=== PATIENT | female | born 1945 | race Two or more races ===

== ENCOUNTER 2022-06-17 12:52 | Emergency (ER) | payer MEDICARE, SELFPAY ==
--- NOTE | ~2022-06-17 | CT_ITS ---
EXAMINATION: CT ABDOMEN AND PELVIS WITH CONTRAST CLINICAL INFORMATION: Rule out pelvic fistula COMPARISON: None TECHNIQUE: Multidetector volumetric images were obtained from the superior aspect of the liver through the pubic symphysis following administration 85 mL of Omnipaque 350 intravenous contrast. Sagittal and coronal reformatted images were obtained on the technologist's workstation. Oral contrast: Yes This CT examination was performed using dose optimization techniques as appropriate, variously including the following: *Automated exposure control *Adjustment of mA and/or kV according to patient size (this includes techniques or standardized protocols for targeted exams where dose is matched to indication/reason for exam; i.e. extremities or head) *Use of iterative reconstruction technique DLP: 623 mGy-cm FINDINGS: LUNG BASES: The visualized lung bases are unremarkable. LIVER, GALLBLADDER, AND BILIARY TREE: The liver is normal in size, shape, and attenuation. No focal hepatic lesion or biliary ductal dilatation is present. The gallbladder is unremarkable with no evidence of radiopaque gallstones, gallbladder wall thickening, or obvious pericholecystic inflammatory changes. PANCREAS: Unremarkable. SPLEEN: Unremarkable. ADRENAL GLANDS: Unremarkable. KIDNEYS AND URETERS: There may be mild left hydronephrosis and ureteral dilatation from the enlarged uterus. There is a small cyst in the lower pole of the right kidney. Kidneys are otherwise normal. BLADDER: The bladder is displaced anteriorly by the enlarged uterus. No contrast or air is seen in the bladder to suggest a fistula. GASTROINTESTINAL TRACT: The small and large bowel are unremarkable. The appendix is unremarkable. ABDOMINAL WALL: Small umbilical and periumbilical hernias containing fat. LYMPH NODES: Normal. VASCULAR: Atherosclerotic disease. No aneurysm. PELVIC VISCERA: The uterus is enlarged and measures 21 x 10 x 10 cm in sagittal AP and transverse dimension.. There are small uterine calcifications suggestive of calcified fibroids. There is low-attenuation seen centrally in the uterus suggestive of endometrial fluid or thickening. This measures 8 cm in diameter. Inferior to the uterus there is a second cystic structure measuring 8 x 9 x 10 cm. This probably represents dilated cervix and lower uterine segment and is distended with endometrial fluid as well. Cervical stenosis or vaginal atresia should be considered. This could be better evaluated with ultrasound or MRI. The bladder is displaced anteriorly. No abnormal air is seen to suggest a fistula to the uterus or vagina. OSSEOUS STRUCTURES: Degenerative changes of the spine and hip joints. CT/CT abdomen pelvis w IV con IMPRESSION: Enlarged uterus with central low-attenuation suggestive of endometrial fluid or thickening. Inferior to the uterus there is a second cystic structure measuring 8 x 9 x 10 cm. This probably represents a dilated cervix and lower uterine segment and is distended with endometrial fluid as well. Cervical stenosis, vaginal atresia or mass should be considered. This could be better evaluated with ultrasound or MRI. FLEET DIRECTOR consultation recommended. The bladder is displaced anteriorly by the enlarged uterus. No abnormal air or contrast is seen in the pelvis to suggest a fistula. Question mild left hydronephrosis and ureteral dilatation from the enlarged uterus. Small right renal cyst. Small umbilical and periumbilical hernias containing fat. Fleischner guidelines were followed.
[2022-06-17 13:03] VITALS: BP 124/72; BP 125/51; PULSE 86; PULSE 94; RESP 18; TEMP 37.3; O2SAT 95; O2SAT 98; BMI 34.8
--- NOTE | 2022-06-17 13:44 | ED_ITS ---
HPI - General Adult General Chief complaint: Abdominal Pain Stated complaint: Vaginal bleeding, Low abd pain per EMS Time Seen by Provider: 06/17/22 13:32 Source: patient and family Mode of arrival: ambulatory Limitations: no limitations History of Present Illness HPI narrative: Patient comes in the emergency room accompanied by her daughter. Patient complains that for the last couple of days, she has noticed some vaginal spotting. Today, patient states that she went to the bathroom to urinate, but before she started urinating, she fell that she had a heavy vaginal discharge and noted it was blood. Patient states this is the 1st time that it happens. Patient denies hematuria or dysuria, no rectal bleeding. Patient is not on blood thinners. Patient denies chest pain or shortness of breath or dizziness. Complaining of moderate bilateral lower quadrant pain/cramping Related Data Allergies Allergy/AdvReac Type Severity Reaction Status Date / Time No Known Allergies Allergy Verified 06/17/22 13:41 Review of Systems Review of Systems: Constitutional : No Weight loss, No Fever, No Chills, No Night Sweats, No Fatigue, No Malaise ENT/Mouth : No Hearing loss, No Ear Pain, No Nasal Congestion, No Sinus Pain, No Hoarseness, No sore throat, No Rhinorrhea, No Swallowing Difficulty Eyes: No Eye Pain, No Swelling, No Redness, No Foreign Body, No Discharge, No Vision Changes Cardiovascular : No Chest Pain, No SOB, No Dyspnea on Exertion, No Orthopnea, No Edema, No Palpitations Respiratory : No Cough, No Sputum, No Wheezing, No Smoke Exposure, No Dyspnea Gastrointestinal : No Nausea, No Vomiting, No Diarrhea, No Constipation, complaining of bilateral lower quadrant cramping Genitourinary : Complaining of vaginal spotting and vaginal bleeding, No Dysuria, No Urinary Frequency, No Hematuria, No Urinary Incontinence, No Urgency, No Flank Pain, No Urinary Flow Changes, No Hesitancy Musculoskeletal : No joint pain, No Myalgias, No Joint Swelling Skin : No Skin Lesions, No rash Neuro : No Weakness, No Numbness, No Paresthesias, No Loss of Consciousness, No Dizziness, No Headache Psych : No Anxiety/Panic, No Depression, No SI/HI/AH/VH, No Social Issues, Heme/Lymph: No Bruising, No Bleeding,No Lymphadenopathy Endocrine : No Polyuria, No Polydipsia, No Temperature Intolerance PMFSH Past Medical History Medical History (Updated 06/17/22 @ 20:50 by Star Steen MD) Cervical dysplasia Diabetes FH: cholecystectomy Hypertension Surgical History H/O: History of laparoscopic cholecystectomy Social History Social History Advance Directives: No Advance Directives Information Provided: Yes Physical Exam ED Vital Signs: Vital Signs - 24 hr 06/17/22 13:03 06/17/22 14:18 06/17/22 17:34 Temperature 99.2 F 98.8 F Pulse Rate 94 77 79 Respiratory Rate 18 18 14 Blood Pressure 125/51 L 112/52 L 152/72 H Pulse Oximetry 95 95 97 Oxygen Delivery Method Room Air Room Air Room Air 06/17/22 20:39 Temperature Pulse Rate 87 Respiratory Rate 18 Blood Pressure 142/63 H Pulse Oximetry 97 Oxygen Delivery Method Room Air BMI result Body Mass Index 34.8 Const Other: Appearance: Alert. Oriented X3. No acute distress. Well-appearing Eyes: Pupils equal, round and reactive to light. ENT: Pharynx normal. Neck: Normal inspection. Neck supple. No lymph nodes noted. No crepitus CVS: Normal heart rate and rhythm. Pulses normal. Normal S1 and S2 Respiratory: No respiratory distress. Breath sounds normal. No Wheezing. No rales Abdomen: Soft and nontender. No rigidity. No distention. : There is a moderate amount of stool like liquid in the vaginal vault. No obvious fistulous visualized Skin: Skin warm and dry. Normal skin color. Normal skin turgor. Extremities: No lower extremity edema. No Lacerations. No Rash Neuro: Oriented X 3. No motor deficit. No sensory deficit. Moving all extre mities. No slurred speech. 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 Steen -Dr. Steen evaluated the patient at bedside. The cervix could not be visualized due to the mass in the vaginal vault. -recommendations, transfer to [facility]. Differential Diagnosis Differential Diagnoses: The differential diagnosis associated with the presentation includes (Myosarcoma, endometrial cancer, upper vaginal mass leaking of bloody discharge, fistula from bladder to the uterus versus bladder to vagina) Admission/Observation Consideration of admission/observation: Escalation of care including admission/observation considered Consult Healthcare Provider Management of the patient was discussed with: Intellectual Property Legal Assistant (obgyn, Dr. steen) Lab Data [facility] Lab Attestation statement: I reviewed the patient's lab results. 06/17/22 14:11 06/17/22 14:11 Labs: Lab Results 06/17/22 06/17/22 06/17/22 Range/Units 14:11 14:11 14:11 WBC 9.3 (4.8-10.8) X10*3/uL RBC 4.34 (4.20-5.50) X10*6/uL Hgb 11.9 L (12.0-16.0) g/dl Hct 37.7 (37.0-47.0) % MCV 86.9 (80.0-98.0) fL MCH 27.4 (27.0-33.0) pg MCHC 31.6 (31.0-35.0) g/dl RDW 14.6 (11.0-16.0) % Plt Count 229 (160-400) X10*3/uL MPV 10.8 (9.4-12.3) fL Immature Gran % (Auto) 0.4 (0.0-0.4) % Neut % (Auto) 70.3 (45-73) % Lymph % (Auto) 15.9 L (20-40) % [place] % (Auto) 10.6 (2-11) % Eos % (Auto) 2.3 (0-4) % Baso % (Auto) 0.5 (0-2) % Lymph # (Auto) 1.5 (1.2-4.9) X10*3/uL [place] # (Auto) 1.0 (0.1-1.2) X10*3/uL Eos # (Auto) 0.2 (0.0-0.4) X10*3/uL Baso # (Auto) 0.1 (0.0-0.2) X10*3/uL Abs Immat Gran (auto) 0.04 H (0.00-0.03) X10*3/uL Absolute Neuts (auto) 6.6 (2.0-8.3) x10*3/uL Absolute Nucleated RBC 0.000 (0.0-0.012) X10*3/uL Nucleated RBC % (auto) 0.0 (0.0-0.2) /100WBC PT 12.3 (10.0-13.1) SEC INR 1.1 (0.9-1.1) APTT 27.4 (26.0-36.4) SEC Sodium 139 (135-145) mmol/L Potassium 4.8 (3.3-5.1) mmol/L Chloride 104 (96-108) mmol/L Carbon Dioxide 28 (22-29) mmol/L Anion Gap 12 (12-20) BUN 24 H (9-16) mg/dL Creatinine 1.16 (0.5-1.4) mg/dL Estim Creat Clear Calc 38.3 Estimated GFR 45 Random Glucose 142 H (60-115) mg/dL Calcium 9.8 (8.4-10.2) mg/dL Total Bilirubin 0.4 (0.0-1.0) mg/dL Direct Bilirubin < 0.2 (0.0-0.5) mg/dL AST 11 (5-31) U/L ALT 9 (0-31) U/L Alkaline Phosphatase 54 (39-117) U/L Total Protein 6.2 L (6.5-8.0) g/dL Albumin 3.3 L (3.5-5.0) g/dL Urine Color Urine Appearance Urine pH (5.0-9.0) Ur Specific [place] (1.005-1.025) Urine Protein (Neg-Trace) mg/dL Urine Glucose (UA) (Negative) mg/dL Urine Ketones (Negative) mg/dL Urine Blood (Negative) Urine Nitrite (Negative) Ur Leukocyte Esterase (Negative) Urine RBC (0-2) /HPF Urine WBC (0-5) /HPF Ur Squamous Epith Cells (0-2) /HPF Urine Bacteria (None Seen) Hyaline Casts (0-2) /LPF 06/17/22 Range/Units 14:11 WBC (4.8-10.8) X10*3/uL RBC (4.20-5.50) X10*6/uL Hgb (12.0-16.0) g/dl Hct (37.0-47.0) % MCV (80.0-98.0) fL MCH (27.0-33.0) pg MCHC (31.0-35.0) g/dl RDW (11.0-16.0) % Plt Count (160-400) X10*3/uL MPV (9.4-12.3) fL Immature Gran % (Auto) (0.0-0.4) % Neut % (Auto) (45-73) % Lymph % (Auto) (20-40) % [place] % (Auto) (2-11) % Eos % (Auto) (0-4) % Baso % (Auto) (0-2) % Lymph # (Auto) (1.2-4.9) X10*3/uL [place] # (Auto) (0.1-1.2) X10*3/uL Eos # (Auto) (0.0-0.4) X10*3/uL Baso # (Auto) (0.0-0.2) X10*3/uL Abs Immat Gran (auto) (0.00-0.03) X10*3/uL Absolute Neuts (auto) (2.0-8.3) x10*3/uL Absolute Nucleated RBC (0.0-0.012) X10*3/uL Nucleated RBC % (auto) (0.0-0.2) /100WBC PT (10.0-13.1) SEC INR (0.9-1.1) APTT (26.0-36.4) SEC Sodium (135-145) mmol/L Potassium (3.3-5.1) mmol/L Chloride (96-108) mmol/L Carbon Dioxide (22-29) mmol/L Anion Gap (12-20) BUN (9-16) mg/dL Creatinine (0.5-1.4) mg/dL Estim Creat Clear Calc Estimated GFR Random Glucose (60-115) mg/dL Calcium (8.4-10.2) mg/dL Total Bilirubin (0.0-1.0) mg/dL Direct Bilirubin (0.0-0.5) mg/dL AST (5-31) U/L ALT (0-31) U/L Alkaline Phosphatase (39-117) U/L Total Protein (6.5-8.0) g/dL Albumin (3.5-5.0) g/dL Urine Color Yellow Urine Appearance Clear Urine pH 5.5 (5.0-9.0) Ur Specific [place] >= 1.030 H (1.005-1.025) Urine Protein Negative (Neg-Trace) mg/dL Urine Glucose (UA) >=1000 H (Negative) mg/dL Urine Ketones Negative (Negative) mg/dL Urine Blood Moderate (2+) H (Negative) Urine Nitrite Negative (Negative) Ur Leukocyte Esterase Negative (Negative) Urine RBC >20 H (0-2) /HPF Urine WBC 0-5 (0-5) /HPF Ur Squamous Epith Cells 0-2 (0-2) /HPF Urine Bacteria None Seen (None Seen) Hyaline Casts 0-2 (0-2) /LPF Independent Interpretation I performed an independent interpretation of an: CT Scan (My CT scan interpretation: Large pelvic mass present, significant uterine wall thickening) Radiology Impression Discussion of test interpretation with radiology: I have reviewed the radiologist's reading. Radiologist Impression: FINDINGS: LUNG BASES: The visualized lung bases are unremarkable.? LIVER, GALLBLADDER, AND BILIARY TREE: The liver is normal in size, shape, and attenuation. No focal hepatic lesion or biliary ductal dilatation is present. The gallbladder is unremarkable with no evidence of radiopaque gallstones, gallbladder wall thickening, or obvious pericholecystic inflammatory changes.? PANCREAS: Unremarkable.? SPLEEN: Unremarkable.? ADRENAL GLANDS: Unremarkable.? KIDNEYS AND URETERS: There may be mild left hydronephrosis and ureteral dilatation from the enlarged uterus. There is a small cyst in the lower pole of the right kidney. Kidneys are otherwise normal. BLADDER: The bladder is displaced anteriorly by the enlarged uterus. No contrast or air is seen in the bladder to suggest a fistula. GASTROINTESTINAL TRACT: The small and large bowel are unremarkable. The appendix is unremarkable.? ABDOMINAL WALL: Small umbilical and periumbilical hernias containing fat. LYMPH NODES: Normal. VASCULAR: Atherosclerotic disease. No aneurysm. PELVIC VISCERA: The uterus is enlarged and measures 21 x 10 x 10 cm in sagittal AP and transverse dimension.. There are small uterine calcifications suggestive of calcified fibroids. There is low-attenuation seen centrally in the uterus suggestive of endometrial fluid or thickening. This measures 8 cm in diameter. Inferior to the uterus there is a second cystic structure measuring 8 x 9 x 10 cm. This probably represents dilated cervix and lower uterine segment and is distended with endometrial fluid as well. Cervical stenosis or vaginal atresia should be considered. This could be better evaluated with ultrasound or MRI. The bladder is displaced anteriorly. No abnormal air is seen to suggest a fistula to the uterus or vagina. OSSEOUS STRUCTURES: Degenerative changes of the spine and hip joints. CT/CT abdomen pelvis w IV con IMPRESSION: Enlarged uterus with central low-attenuation suggestive of endometrial fluid or thickening. Inferior to the uterus there is a second cystic structure measuring 8 x 9 x 10 cm. This probably represents a dilated cervix and lower uterine segment and is distended with endometrial fluid as well. Cervical stenosis, vaginal atresia or mass should be considered. This could be better evaluated with ultrasound or MRI. FELT STRIP FINISHER consultation recommended. The bladder is displaced anteriorly by the enlarged uterus. No abnormal air or contrast is seen in the pelvis to suggest a fistula. Question mild left hydronephrosis and ureteral dilatation from the enlarged uterus. Small right renal cyst. Small umbilical and periumbilical hernias containing fat. ? Fleischner guidelines were followed. Critical Care Time Critical Care Time Critical Care Time: Yes Total Critical Care Time: 50 Attestation: I have personally provided critical care time. Time includes review of lab data, radiology results, discussion with consultants, and monitoring for potential decompensation. Intervention performed as documented. Discharge Plan Discharge Clinical Impression: Mass of uterus Patient Disposition: [facility] Transfer Details: [facility]
[2022-06-17 14:18] VITALS: BP 112/52; PULSE 77; RESP 18; TEMP 37.1; O2SAT 95
[2022-06-17 14:19] LABS: MANUAL DIFF FLAG NO
[2022-06-17 14:22] LABS: Basophils Absolute Auto 0.1 X10*3/uL (0.0-0.2); Basophils Percent Auto 0.5 % (0-2); Eosinophils Absolute Auto 0.2 X10*3/uL (0.0-0.4); Eosinophils Percent Auto 2.3 % (0-4); Hematocrit 37.7 % (37.0-47.0); Hemoglobin 11.9 g/dl (12.0-16.0); Imm Gran Abs Auto 0.04 X10*3/uL (0.00-0.03); Imm Gran Pct Auto 0.4 % (0.0-0.4); Lymphocytes Absolute Auto 1.5 X10*3/uL (1.2-4.9); Lymphocytes Percent Auto 15.9 % (20-40); Mean Corpuscular HGB Conc 31.6 g/dl (31.0-35.0); Mean Corpuscular Hemoglobin 27.4 pg (27.0-33.0); Mean Corpuscular Volume 86.9 fL (80.0-98.0); Mean Platelet Volume 10.8 fL (9.4-12.3); Monocytes Percent Auto 10.6 % (2-11); Neutrophils Absolute Auto 6.6 x10*3/uL (2.0-8.3); Neutrophils Percent Auto 70.3 % (45-73); Platelet Count 229 X10*3/uL (160-400); Red Blood Count 4.34 X10*6/uL (4.20-5.50); Red Cell Distribution Width 14.6 % (11.0-16.0); White Blood Count 9.3 X10*3/uL (4.8-10.8)
[2022-06-17 14:26] LABS: Appearance Urine Clear; Color Urine Yellow; Glucose Urine UA >=1000 mg/dL (Negative); Leukocyte Esterase Urine Negative (Negative); Nitrite Urine Negative (Negative); PH 5.5 (5.0-9.0); Specific Gravity - Urine >= 1.030 (1.005-1.025); UMIC TRIGGER UACC YES; Urine Blood Moderate (2+) (Negative); Urine Ketones Negative (Negative); Urine Protein Negative (Neg-Trace)
[2022-06-17 14:29] LABS: INTERNATIONAL NORM RATIO 1.1 (0.9-1.1); Prothrombin Time 12.3 SEC (10.0-13.1)
[2022-06-17 14:32] LABS: Partial Thromboplastin Time 27.4 SEC (26.0-36.4)
[2022-06-17 14:35] LABS: Bacteria Urine None Seen (None Seen); Hyaline Casts Urine 0-2 /LPF (0-2); RBC Urine >20 /HPF (0-2); Squamous Epithelial Cell Urine 0-2 /HPF (0-2); WBC Urine 0-5 /HPF (0-5)
[2022-06-17 14:38] LABS: Alanine Aminotransferase 9 U/L (0-31); Albumin Level 3.3 g/dL (3.5-5.0); Alkaline Phosphatase 54 U/L (39-117); Anion Gap 12 (12-20); Aspartate Amino Transferase 11 U/L (5-31); Bilirubin Direct < 0.2 mg/dL (0.0-0.5); Bilirubin Total 0.4 mg/dL (0.0-1.0); Blood Urea Nitrogen 24 mg/dL (9-16); Calcium 9.8 mg/dL (8.4-10.2); Carbon Dioxide 28 mmol/L (22-29); Chloride 104 mmol/L (96-108); Creatinine Clr Calc Pharmacy 38.3; Estimated Glomerular Filt Rate 45; Glucose Random 142 mg/dL (60-115); Potassium 4.8 mmol/L (3.3-5.1); Sodium 139 mmol/L (135-145); Total Protein 6.2 g/dL (6.5-8.0)
[2022-06-17] MEDS: iohexoL 350 MG/ML 100 ML INFUS..BTL 85 ML IV (15:28)
--- NOTE | 2022-06-17 16:35 | PC.NURSE ---
Late entry: report received from [facility] Pt resting comfortably on stretcher, awaiting new MD orders at this time
[2022-06-17 17:34] VITALS: BP 152/72; PULSE 79; RESP 14; O2SAT 97
--- NOTE | 2022-06-17 20:37 | MHC.EDTECH ---
Call out [facility] Transfer line @ [phone]
--- NOTE | 2022-06-17 20:38 | PC.NURSE ---
Pt moved over to pelvic stretcher for examination by Dr. Steen. KATHY Sawyer present for Dr. Steen's exam. Pt will be transferred to [facility] for further management. Awaiting confirmation from
[2022-06-17 20:39] VITALS: BP 142/63; PULSE 87; RESP 18; O2SAT 97
--- NOTE | 2022-06-17 20:43 | PM.GYNCN ---
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 The patient gives a history of growing myoma in 2019 and hysterectomy was planned but she was told that she is not a surgical candidate because of indicated medical problems including DVT and stroke. 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 - Review of Systems Review of Systems ROS Unobtainable: All systems reviewed & are unremarkable except as noted in HPI and below Cardiovascular: Denies Palpatations, Loss of consciousness or Chest pain Respiratory: Denies Cough, Wheezing or Shortness of breath Musculoskeletal: Denies Low back pain Gastrointestinal: Denies Heartburn, Constipation, Diarrhea, Nausea or Vomiting Genitourinary: Denies Pain with urination, Burning with urination or Urinary frequency Neurological: Denies Migranes Psychological: Denies Depression OB PMFSH Past Medical History Medical History (Updated 06/17/22 @ 20:50 by Star Steen MD) Cervical dysplasia Diabetes FH: cholecystectomy Hypertension Surgical History Surgical History H/O: History of laparoscopic cholecystectomy Social History Social History Advance Directives: No Advance Directives Information Provided: Yes Meds Allergies Allergy/AdvReac Type Severity Reaction Status Date / Time No Known Allergies Allergy Verified 06/17/22 13:41 FOLDER STITCHER OPERATOR Physical Exam Vitals Vital signs: Temp Pulse Resp BP Pulse Ox O2 Del Method 98.8 F 87 18 142/63 H 97 06/17/22 14:18 06/17/22 20:39 06/17/22 20:39 06/17/22 20:39 06/17/22 20:39 06/17/22 20:39 BMI result Body Mass Index 34.8 Constitutional General Appearance: Healthy appearing, Well-nourished and Well-developed Psychiatric Mood and Affect: active and alert, normal mood and normal affect Skin Appearance: No rashes and No lesions Lungs Respiratory Effort: No intercostal retractions Auscultation: Clear to auscultation Cardiovascular Auscultation: RRR Abdomen Auscultation/Inspection/Palpation: Normal bowel sounds, Soft, Non-distended and No tenderness Female Genitalia (Pelvic) Bladder/Urethra: Normal meatus Vulva: No lesions Vagina: Nontender Uterus: Enlarged Additional Comments: A large mass filling up most of the upper vaginal cavity a membranous with a small hole in it leaking serosanguineous fluid copiously, cervix not identify FOLDER STITCHER OPERATOR - Results Labs 06/17/22 14:11 06/17/22 14:11 Labs: Short CBC 06/17/22 Range/Units 14:11 WBC 9.3 (4.8-10.8) X10*3/uL Hgb 11.9 L (12.0-16.0) g/dl Hct 37.7 (37.0-47.0) % Plt Count 229 (160-400) X10*3/uL BMP 06/17/22 14:11 Sodium 139 Potassium 4.8 Chloride 104 Carbon Dioxide 28 BUN 24 H Creatinine 1.16 Calcium 9.8 Liver Function 06/17/22 Range/Units 14:11 Total Bilirubin 0.4 (0.0-1.0) mg/dL Direct Bilirubin < 0.2 (0.0-0.5) mg/dL AST 11 (5-31) U/L ALT 9 (0-31) U/L Alkaline Phosphatase 54 (39-117) U/L Albumin 3.3 L (3.5-5.0) g/dL Urine 06/17/22 Range/Units 14:11 Urine Color Yellow Urine Appearance Clear Urine pH 5.5 (5.0-9.0) Ur Specific [place] >= 1.030 H (1.005-1.025) Urine Protein Negative (Neg-Trace) mg/dL Urine Glucose (UA) >=1000 H (Negative) mg/dL Imaging CT scan - pelvis: Radiologist's impression: ITS Impressions Abdomen/Pelvis CT 06/17/22 15:33 IMPRESSION: Enlarged uterus with central low-attenuation suggestive of endometrial fluid or thickening. Inferior to the uterus there is a second cystic structure measuring 8 x 9 x 10 cm. This probably represents a dilated cervix and lower uterine segment and is distended with endometrial fluid as well. Cervical stenosis, vaginal atresia or mass should be considered. This could be better evaluated with ultrasound or MRI. FOLDER STITCHER OPERATOR consultation recommended. The bladder is displaced anteriorly by the enlarged uterus. No abnormal air or contrast is seen in the pelvis to suggest a fistula. Question mild left hydronephrosis and ureteral dilatation from the enlarged uterus. Small right renal cyst. Small umbilical and periumbilical hernias containing fat. Fleischner guidelines were followed. Assessment and Plan (1) Uterine myoma: Status: Acute Plan Discussed with the patient the finding on physical exam showing a membranous mass filling up the upper vaginal canal leaking copious amount of serosanguineous discharge, consistent with the finding on CT scan showing an 8 cm cystic mass inferior to the uterus , possible dilated cervix or lower uterine segment, possible differential diagnosis includes serosanguineous discharge with possible Dimitry sarcoma, cervical stenosis from previous cryotherapy, endometrial cancer , endometritis secondary to necrosis or others. Since the patient has complex medical history including DVT and stroke and enlarging myoma with the possibility of Dimitry sarcoma or endometrial cancer, and since there is no Die Maintenance Technician Oncology service at [facility] I recommend to transfer the patient to [facility] where more resources are available. All questions answered, the patient verbalized understanding agreed with the plan. The case was discussed with Dr. Rushing in the emergency room. The Communication with the patient was through a certified training manager Time Spent With Patient Time: Total time managing care of this patient today ____ minutes.
== END 2022-06-17 21:40 | disposition short-term general hospital (02) ==
PROVIDERS: Emergency Provider Emergency Medicine
DX: D25.9 Leiomyoma of uterus, unspecified (principal); R19.05 Periumbilic swelling, mass or lump; Z79.899 Other long term (current) drug therapy
CPT/HCPCS: 36415; 74177; 80048; 80076; 81001; 85025; 85610; 85730; 99285; Q9967